=== PATIENT | male | born 1980 | race Caucasian/White ===

== ENCOUNTER 2018-09-10 19:29 | Emergency (ER) | payer OTHER ==
[~2018-09-10] VITALS: Ht 182.9 cm; Wt 83.9 kg
--- NOTE | 2018-09-10 19:30 | NUR ---
ED Nurse Note: Patient walked into ER [place] chest pain radiating to left arm X 2hrs while driving. Patient denies SOB at this time, bed rails X2 up patient stable. Boyfriend Bhavesh at bed side.
--- NOTE | 2018-09-10 19:40 | Emergency Room Report ---
History of Present Illness General Chief Complaint: Chest Pain Source: Patient Present Illness HPI Patient presents emergency department today complaint acute onset of chest discomfort. Patient states that he has not been feeling well all day feeling and developed the onset of chest discomfort which radiated into his left arm. He has some mild chest pressure sensation that he states is worse with movement of his left arm. Denies any nausea vomiting diarrhea chills. No fever cough or runny nose. Symptoms noted to be mild. Patient states that he has a family history of cardiac disease and his father had a heart attack at age 42. So he does not want to ignore anything. Patient does admit to being under stress lately and is uncertain if this is causing his issues. Patient states that he exercises regularly and never experiences chest pain. He denies any leg pain leg swelling. No other complaints are noted. Symptoms noted to moderate. No other modifying factors. No other associated signs and symptoms. No other complaints were noted. Allergies: Coded Allergies: No Known Allergies (Unverified , 09/10/18) Patient History Past Medical History: other - Cholesterol Past Surgical History: none Pertinent Family History: none Social History: Denies: smoking, alcohol use, drug use Reviewed Nursing Documentation: PMH: Agreed; PSxH: Agreed Review of Systems All Other Systems: negative except mentioned in HPI Physical Exam Vital Signs Date Time Temp Pulse Resp B/P (MAP) Pulse Ox O2 Delivery O2 Flow Rate FiO2 09/10/18 19:34 98.2 105 13 128/87 (101) 100 Room Air Sp02 EP Interpretation: reviewed, normal General Appearance: normal inspection, well appearing, no apparent distress, alert Head: atraumatic Eyes: bilateral eye normal inspection ENT: normal ENT inspection, hearing grossly normal, normal voice Neck: normal inspection, full range of motion, supple, no bony tend Respiratory: normal inspection, lungs clear, normal breath sounds, no respiratory distress, no retraction, no wheezing Cardiovascular #1: regular rate, rhythm, no edema Gastrointestinal: normal inspection, normal bowel sounds, non tender, soft, no guarding, no hernia Genitourinary: no CVA tenderness Musculoskeletal: normal inspection, back normal, normal range of motion Neurologic: normal inspection, alert, responsive, speech normal Psychiatric: normal inspection, judgement/insight normal, mood/affect normal Skin: no rash Medical Decision Making Diagnostic Impression: Primary Impression: Chest pain ER Course Patient presented to the emergency department today complaining of chest pain. Differential diagnoses include acute coronary syndrome, pulmonary embolism, pneumothorax, chest wall pain, pleurisy, pericarditis, acute anxiety reaction just to name a few. Given the severity of the patient's presentation I felt this is a highly complex patient. This patient required extensive workup. CBC , chemistry, EKG, chest x-ray, cardiac enzymes, liver profile were all obtained. 12-lead EKG performed for nontraumatic chest pain. RS documentation: EKG was performed. Please refer to below for interpretation. Patient had CBC and chemistry obtained. Both of which were normal. Patient's cardiac enzymes also normal. Patient had normal chest x-ray. Patient's EKG and rhythm strip are also normal. I discussed with the patient about the possibly being admitted to the hospital. Patient did not want to be admitted to the hospital. Patient states that he has a follow-up appointment with his physician in the morning. I felt that this was a reasonable approach as patient does not have any risk factors other than family risk factors. Patient's work-up has been negative thus far with a normal EKG. Therefore I felt that it would be reasonable if we obtain a second set of cardiac enzymes. If the second set of cardiac enzymes was negative and patient did not have any evidence of acute [place] and patient could be discharged with a outpatient expedited stress test likely to be arranged in the morning by his primary care physician. This option was discussed with the patient and his partner present who clearly state that they would prefer this approach. Therefore will obtain a second set of cardiac enzymes. If it is negative we will discharge patient per patient request. Patient is advised to follow-up with his primary care physician early in the morning and to return emergency room for any worsening symptoms and as needed. Labs Test 09/10/18 19:45 White Blood Count 9.0 K/UL (4.8-10.8) Red Blood Count 5.24 M/UL (4.70-6.10) Hemoglobin 15.9 G/DL (14.2-18.0) Hematocrit 46.4 % (42.0-52.0) Mean Corpuscular Volume 89 FL (80-99) Mean Corpuscular Hemoglobin 30.4 PG (27.0-31.0) Mean Corpuscular Hemoglobin Concent 34.3 G/DL (32.0-36.0) Red Cell Distribution Width 11.1 % (11.6-14.8) Platelet Count 278 K/UL (150-450) Mean Platelet Volume 4.9 FL (6.5-10.1) Neutrophils (%) (Auto) 64.9 % (45.0-75.0) Lymphocytes (%) (Auto) 26.0 % (20.0-45.0) Monocytes (%) (Auto) 6.3 % (1.0-10.0) Eosinophils (%) (Auto) 1.9 % (0.0-3.0) Basophils (%) (Auto) 0.9 % (0.0-2.0) Sodium Level 141 MMOL/L (136-145) Potassium Level 3.6 MMOL/L (3.5-5.1) Chloride Level 102 MMOL/L (98-107) Carbon Dioxide Level 27 MMOL/L (21-32) Anion Gap 12 mmol/L (5-15) Blood Urea Nitrogen 21 mg/dL (7-18) Creatinine 1.1 MG/DL (0.55-1.30) Estimat Glomerular Filtration Rate > 60 mL/min (>60) Glucose Level 149 MG/DL (74-106) Calcium Level 9.4 MG/DL (8.5-10.1) Total Bilirubin 0.7 MG/DL (0.2-1.0) Aspartate Amino Transf (AST/SGOT) 25 U/L (15-37) Alanine Aminotransferase (ALT/SGPT) 48 U/L (12-78) Alkaline Phosphatase 67 U/L (46-116) Total Creatine Kinase 99 U/L (26-308) Creatine Kinase MB < 0.5 NG/ML (0.0-3.6) Creatine Kinase MB Relative Index 0.5 Troponin I 0.000 ng/mL (0.000-0.056) Pro-B-Type Natriuretic Peptide 26 pg/mL (0-125) Total Protein 8.0 G/DL (6.4-8.2) Albumin 5.0 G/DL (3.4-5.0) Globulin 3.0 g/dL Albumin/Globulin Ratio 1.7 (1.0-2.7) Lipase 85 U/L (73-393) EKG Diagnostic Results Rate: normal Rhythm: NSR ST Segments: no acute changes Rhythm Strip Diag. Results EP Interpretation: yes Rate: 87 Rhythm: NSR, no PVC's, no ectopy Chest X-Ray Diagnostic Results Chest X-Ray Diagnostic Results : Chest X-Ray Ordered: Yes # of Views/Limited/Complete: 1 View Indication: Chest Pain EP Interpretation: Yes Interpretation: no consolidation, no effusion, no pneumothorax, no acute cardiopulmonary disease Impression: No acute disease Electronically Signed by: Electronically signed by Kevin Woo MD Last Vital Signs Date Time Temp Pulse Resp B/P (MAP) Pulse Ox O2 Delivery O2 Flow Rate FiO2 09/10/18 19:34 98.2 105 13 128/87 (101) 100 Room Air Status: improved Disposition: HOME, SELF-CARE Condition: Stable Kevin Woo MD Sep 10, 2018 19:40
[2018-09-10] MEDS ORDERED: Aspirin Baby 81mg ORAL ONE (19:45)
--- NOTE | 2018-09-10 19:50 | NUR ---
ED Nurse Note: X-Ray at bed side. Patietn tolerating tx.
--- NOTE | 2018-09-10 19:55 | NUR ---
ED Nurse Note: X-Ray completed.
[2018-09-10 19:59] VITALS: BP 128/87
[2018-09-10 20:16] LABS: BASOPHILS % (AUTO) 0.9 % (0.0-2.0); EOSINOPHILS % (AUTO) 1.9 % (0.0-3.0); HEMATOCRIT 46.4 % (42.0-52.0); HEMOGLOBIN 15.9 G/DL (14.2-18.0); MEAN CORPUSCULAR VOLUME 89 FL (80-99); MONOCYTES % (AUTO) 6.3 % (1.0-10.0); NEUTROPHILS % (AUTO) 64.9 % (45.0-75.0); PLATELET COUNT 278 K/UL (150-450); RED BLOOD COUNT 5.24 M/UL (4.70-6.10); RED CELL DISTRIBUTION WIDTH 11.1 % (11.6-14.8)
[2018-09-10 20:18] LABS: ANION GAP 12 mmol/L (5-15); BLOOD UREA NITROGEN 21 mg/dL (7-18); CALCIUM 9.4 MG/DL (8.5-10.1); CARBON DIOXIDE 27 MMOL/L (21-32); CHLORIDE 102 MMOL/L (98-107); CREATININE 1.1 MG/DL (0.55-1.30); POTASSIUM 3.6 MMOL/L (3.5-5.1); SODIUM 141 MMOL/L (136-145)
[2018-09-10 20:32] LABS: ALANINE AMINOTRANSFERASE 48 U/L (12-78); ALBUMIN/GLOBULIN RATIO 1.7 (1.0-2.7); ALKALINE PHOSPHATASE 67 U/L (46-116); ASPARTATE AMINO TRANSFERASE 25 U/L (15-37); BILIRUBIN,TOTAL 0.7 MG/DL (0.2-1.0); CKMB < 0.5 NG/ML (0.0-3.6); CREATINE KINASE 99 U/L (26-308)
--- NOTE | 2018-09-10 20:47 | NUR ---
ED Nurse Note: Troponin was order per ERMD, to be drawn at 2230.
--- NOTE | 2018-09-10 20:47 | NUR ---
ED Nurse Note: Patient's boyfriend Devyn's number is
[2018-09-10] MEDS ORDERED: Lidocaine 2% Visc 15ml soln ORAL ONE (21:00)
[2018-09-10 21:36] VITALS: BP 110/75
[2018-09-10] MEDS ORDERED: LIPITOR20 MG ORAL (22:34)
[2018-09-10 23:35] VITALS: BP 115/73
--- NOTE | 2018-09-10 23:35 | NUR ---
ER DISCHARGE NOTE: Patient is cleared to be discharged per ERMD, pt is aox4, on room air, with stable vital signs. pt was given dc and prescription instructions, pt was able to verbalize understanding, pt id band and iv site removed without complications. pt is able to ambulate with steady gait. pt took all belongings.
--- NOTE | 2018-09-11 12:06 | Diagnostic Imaging Report ---
Indication: Dyspnea Comparison: None A single view chest radiograph was obtained. Findings: Cardiomediastinal appearance is within normal limits for age. The lungs are clear. Pulmonary vascularity is appropriate. The diaphragmatic contour is smooth and costophrenic angles are sharp. No pleural effusions are identified. The bones are unremarkable. Impression: No acute findings
--- NOTE | 2018-09-12 16:02 | Cardiology Report ---
APPROVED REPORT EKG Measurement Heart [id number] [place] [id number] Normal sinus rhythm with sinus arrhythmia Possible Left atrial enlargement Borderline ECG
== END 2018-09-10 23:35 | disposition home or self-care (01) ==
LOC: EMR 20:15
DX: R07.9 Chest pain, unspecified (principal); Z82.49 Family history of ischemic heart disease and other diseases of the circulatory system; E78.00 Pure hypercholesterolemia, unspecified
CPT/HCPCS: 36415; 71045; 80053; 82550; 82553; 83690; 83880; 84484; 85025; 93005; 99284

== ENCOUNTER 2019-08-13 20:25 | Emergency (ER) | payer OTHER ==
[~2019-08-13] VITALS: Ht 180.3 cm; Wt 59.0 kg
[~2019-08-13 20:25] MED LIST: LIPITOR20 MG ORAL
[2019-08-13 20:30] VITALS: BP 142/90
[2019-08-13] MEDS ORDERED: LORazepam Inj 2mg/ml 1ml IV ONE (21:15)
--- NOTE | 2019-08-13 21:47 | Emergency Room Report ---
History of Present Illness General Chief Complaint: Behavioral Complaint Present Illness HPI 33-year-old male history of bipolar disorder on lithium presented for due to agitation. Patient found running down the street naked. He is a very uncooperative patient, it is unclear if he has been compliant with his medications. He denies using any drugs. He denies any pain shortness of breath or fever. He is followed by psychiatry, Dr. Morgan Haddad. (Apollo Ridley M.D.) Allergies: Coded Allergies: No Known Allergies (Unverified , 08/13/19) COVID-19 Screening Contact w/high risk pt: No Recent Travel to affected area: No Experienced COVID-19 symptoms?: No COVID-19 Testing performed PHOTONICS TECHNICIAN: No (Apollo Ridley M.D.) Patient History Reviewed Nursing Documentation: PMH: Agreed; PSxH: Agreed (Apollo Ridley M.D.) Nursing Documentation-PMH Past Medical History Deferred: Pt Cognitively Impaired (Apollo Ridley M.D.) Review of Systems All Other Systems: negative except mentioned in HPI (Apollo Ridley M.D.) Physical Exam Vital Signs Date Time Temp Pulse Resp B/P (MAP) Pulse Ox O2 Delivery O2 Flow Rate FiO2 08/13/19 20:20 97.9 99 18 142/90 (107) 99 Room Air Sp02 EP Interpretation: reviewed, normal General Appearance: well appearing, other - Patient with rapid speech, psychomotor agitation Head: normocephalic, atraumatic Eyes: bilateral eye PERRL, bilateral eye EOMI ENT: hearing grossly normal, moist mucus membranes Neck: full range of motion, supple Respiratory: lungs clear, normal breath sounds, no rhonchi, no respiratory distress, no retraction, no wheezing Cardiovascular #1: normal peripheral pulses, regular rate, rhythm, no murmur Gastrointestinal: non tender, soft, non-distended, no guarding Neurologic: alert, oriented x3, no focal defects Psychiatric: no suicidal/homicidal ideation, other - Psychomotor agitation rapid speech with flight of ideas. Skin: normal color, warm/dry (Apollo Ridley M.D.) Medical Decision Making Diagnostic Impression: Primary Impression: Bipolar disorder with severe mateusz ER Course MDM: Patient presented agitated, appeared acutely manic. Differential included bipolar mateusz, stimulant abuse, less likely infectious process. No signs of trauma on exam. Clinical course-IV inserted, patient given Ativan, medical clearance labs were sent, urine drug screen was sent. Labs - On reevaluation: Plan- (Apollo Ridley M.D.) ER Course This patient was turned over to me. He was awaiting psych evaluation team. He has a history of bipolar disorder and has been off of his lithium. He is manic with psychosis. He was singing songs at the top of his lungs. He was unable to articulate any type of sensible conversation. He was given Zyprexa Zydis and oral Ativan for his ongoing psychosis and overstimulation. He continues to await evaluation for inpatient psychiatry. The psychiatric evaluation team states that they cannot come evaluate him without a negative COVID-19 test. Therefore, a rapid test was obtained here in the emergency department which was negative. The patient [facility] This patient was evaluated in the context of the global COVID-19 pandemic, which necessitated consideration that the patient might be at risk for infection with the [id number] virus that causes COVID-19. Institutional protocols and algorithms that pertain to the evaluation of patients at risk for COVID-19 and the state of rapid change based on information released by multiple regulatory bodies including the CDC and federal and state organizations. These policies and algorithms were followed during the patient' s care in the ED. Laboratory Tests Test 08/13/19 20:55 08/13/19 21:50 08/13/19 23:54 08/14/19 04:04 White Blood Count 11.9 K/UL (4.8-10.8) H Red Blood Count 5.32 M/UL (4.70-6.10) Hemoglobin 16.1 G/DL (14.2-18.0) Hematocrit 48.9 % (42.0-52.0) Mean Corpuscular Volume 92 FL (80-99) Mean Corpuscular Hemoglobin 30.2 PG (27.0-31.0) Mean Corpuscular Hemoglobin Concent 32.9 G/DL (32.0-36.0) Red Cell Distribution Width 12.3 % (11.6-14.8) Platelet Count 355 K/UL (150-450) Mean Platelet Volume 5.8 FL (6.5-10.1) L Neutrophils (%) (Auto) 69.2 % (45.0-75.0) Lymphocytes (%) (Auto) 18.8 % (20.0-45.0) L Monocytes (%) (Auto) 10.3 % (1.0-10.0) H Eosinophils (%) (Auto) 0.6 % (0.0-3.0) Basophils (%) (Auto) 1.0 % (0.0-2.0) Sodium Level 142 MMOL/L (136-145) Potassium Level 2.8 MMOL/L (3.5-5.1) L 2.9 MMOL/L (3.5-5.1) L 3.0 MMOL/L (3.5-5.1) L Chloride Level 102 MMOL/L (98-107) Carbon Dioxide Level 26 MMOL/L (21-32) Anion Gap 13 mmol/L (5-15) Blood Urea Nitrogen 17 mg/dL (7-18) Creatinine 1.5 MG/DL (0.55-1.30) H Estimated Glomerular Filtration Rate 53.3 mL/min (>60) Glucose Level 134 MG/DL (74-106) H Calcium Level 9.5 MG/DL (8.5-10.1) Total Bilirubin 1.2 MG/DL (0.2-1.0) H Direct Bilirubin 0.3 MG/DL (0.0-0.3) Aspartate Amino Transferase (AST) 41 U/L (15-37) H Alanine Aminotransferase (ALT) 31 U/L (12-78) Alkaline Phosphatase 77 U/L (46-116) Total Protein 8.3 G/DL (6.4-8.2) H Albumin 5.0 G/DL (3.4-5.0) Globulin 3.3 g/dL Albumin/Globulin Ratio 1.5 (1.0-2.7) Salicylates Level 1.6 ug/mL (2.8-20) L Acetaminophen Level < 2 MCG/ML (10-30) L Serum Alcohol < 3 mg/dL Urine Color Fern Urine Appearance Cloudy Urine pH 5 (4.5-8.0) Urine Specific [place] 1.025 (1.005-1.035) Urine Protein 2+ (NEGATIVE) H Urine Glucose (UA) Negative (NEGATIVE) Urine Ketones 4+ (NEGATIVE) H Urine Blood 2+ (NEGATIVE) H Urine Nitrite Negative (NEGATIVE) Urine Bilirubin 1+ (NEGATIVE) H Urine Ictotest Negative (NEGATIVE) Urine Urobilinogen 4 MG/DL (0.0-1.0) H Urine Leukocyte Esterase 1+ (NEGATIVE) H Urine RBC 2-4 /HPF (0 - 0) H Urine WBC 10-15 /HPF (0 - 0) H Urine Squamous Epithelial Cells Moderate /LPF (NONE/OCC) H Urine Bacteria Moderate /HPF (NONE) H Urine Mucus Many /LPF (NONE/OCC) H Urine Opiates Screen Negative (NEGATIVE) Urine Barbiturates Screen Negative (NEGATIVE) Phencyclidine (PCP) Screen Negative (NEGATIVE) Urine Amphetamines Screen Negative (NEGATIVE) Urine Benzodiazepines Screen Negative (NEGATIVE) Urine Cocaine Screen Negative (NEGATIVE) Urine Marijuana (THC) Screen Positive (NEGATIVE) H (Angela Nina DO) Last Vital Signs Date Time Temp Pulse Resp B/P (MAP) Pulse Ox O2 Delivery O2 Flow Rate FiO2 08/13/19 20:30 99 18 Room Air 08/13/19 20:30 97.9 142/90 99 (Apollo Ridley M.D.) Referrals: NOT CHOSEN ROBERT/,REFERRING (PCP) Apollo Ridley M.D. Aug 13, 2019 21:47 Angela Nina DO Aug 14, 2019 08:54
[2019-08-13 21:56] LABS: ANION GAP 13 mmol/L (5-15); BLOOD UREA NITROGEN 17 mg/dL (7-18); CARBON DIOXIDE 26 MMOL/L (21-32); CHLORIDE 102 MMOL/L (98-107); CREATININE 1.5 MG/DL (0.55-1.30); POTASSIUM 2.8 MMOL/L (3.5-5.1); SODIUM 142 MMOL/L (136-145)
[2019-08-13 21:57] LABS: ALANINE AMINOTRANSFERASE 31 U/L (12-78); ALBUMIN/GLOBULIN RATIO 1.5 (1.0-2.7); ALKALINE PHOSPHATASE 77 U/L (46-116); ASPARTATE AMINO TRANSFERASE 41 U/L (15-37); BILIRUBIN,TOTAL 1.2 MG/DL (0.2-1.0); CALCIUM 9.5 MG/DL (8.5-10.1)
[2019-08-13 22:02] LABS: BILIRUBIN,DIRECT 0.3 MG/DL (0.0-0.3)
[2019-08-13 22:07] LABS: APPEARANCE,URINE CLOUDY; BILIRUBIN, URINE 1+ (NEGATIVE); GLUCOSE, URINE (UA) NEGATIVE (NEGATIVE); KETONES,URINE 4+ (NEGATIVE); LEUKOCYTE ESTERASE ,URINE 1+ (NEGATIVE); NITRITE,URINE NEGATIVE (NEGATIVE); PH,URINE 5 (4.5-8.0); PROTEIN,URINE 2+ (NEGATIVE); UROBILINOGEN,URINE 4 MG/DL (0.0-1.0)
[2019-08-13 22:10] LABS: EOSINOPHILS % (AUTO) 0.6 % (0.0-3.0); HEMATOCRIT 48.9 % (42.0-52.0); HEMOGLOBIN 16.1 G/DL (14.2-18.0); LYMPHOCYTES % (AUTO) 18.8 % (20.0-45.0); MEAN CORPUSCULAR VOLUME 92 FL (80-99); MONOCYTES % (AUTO) 10.3 % (1.0-10.0); NEUTROPHILS % (AUTO) 69.2 % (45.0-75.0); PLATELET COUNT 355 K/UL (150-450); RED BLOOD COUNT 5.32 M/UL (4.70-6.10); RED CELL DISTRIBUTION WIDTH 12.3 % (11.6-14.8); WHITE BLOOD COUNT 11.9 K/UL (4.8-10.8)
[2019-08-13 22:11] LABS: COLOR,URINE AMBER
[2019-08-13] MEDS ORDERED: cefTRIAXone 1 GM in NS 55 ML IVPB ONE (22:30)
[2019-08-13 23:30] VITALS: BP 132/76
[2019-08-14 01:45] VITALS: BP 147/89
[2019-08-14] MEDS ORDERED: DiphenhydrAMINE 50mg/ml Inj IVP ONE (02:00)
[2019-08-14 03:15] VITALS: BP 131/76
[2019-08-14 05:17] VITALS: BP 132/82
[2019-08-14] MEDS ORDERED: ZyPREXA Zydis 10mg tab ORAL ONE (07:15)
[2019-08-14] MEDS ORDERED: LORazepam 1mg tab ORAL ONE (08:00)
[2019-08-14 09:23] VITALS: BP 134/85
[2019-08-14 09:34] LABS: BASOPHILS % (AUTO) 0.8 % (0.0-2.0); EOSINOPHILS % (AUTO) 0.8 % (0.0-3.0); HEMATOCRIT 42.4 % (42.0-52.0); HEMOGLOBIN 14.5 G/DL (14.2-18.0); LYMPHOCYTES % (AUTO) 17.6 % (20.0-45.0); MEAN CORPUSCULAR VOLUME 89 FL (80-99); MONOCYTES % (AUTO) 11.5 % (1.0-10.0); NEUTROPHILS % (AUTO) 69.4 % (45.0-75.0); PLATELET COUNT 247 K/UL (150-450); RED BLOOD COUNT 4.78 M/UL (4.70-6.10); RED CELL DISTRIBUTION WIDTH 10.5 % (11.6-14.8); WHITE BLOOD COUNT 10.9 K/UL (4.8-10.8)
[2019-08-14 12:03] VITALS: BP 118/72
== END 2019-08-14 12:03 | disposition short-term general hospital (02) ==
LOC: EDBD 20:25 → MERGE 21:00 → EMR 21:00 → EDBD 21:00 → EMR 08-14 12:03
DX: F06.33 Mood disorder due to known physiological condition with manic features (principal)
CPT/HCPCS: 36415; 80053; 80307; 81003; 82248; 84132; 85025; 87086; 96361; 96365; 96368; 96375; 99284; G0480; J0696; J1200; J3480; J7030; U0002; J8499